=== PATIENT | male | born 1980 | race Hispanic/Latino ===

== ENCOUNTER 2017-11-02 01:36 | Emergency (ER) | payer SELFPAY ==
[2017-11-02 01:47] VITALS: BP 141/88; PULSE 100; RESP 17; TEMP 98.9; O2SAT 99
--- NOTE | 2017-11-02 04:13 | ED PDOC ---
HPI: Psych/Substance Abuse Time Seen by Provider: 11/02/17 01:46 Chief Complaint (Nursing): Alcohol Ingestion Chief Complaint (Provider): Alcohol Abuse History Per: Patient History/Exam Limitations: no limitations Onset/Duration Of Symptoms: Hrs (prior to arrival) Modifying Factor(s): Alcohol Additional Complaint(s): Samuel Hein is a 37 year old male with a no past medical history was brought to the [facility] by EMS for alcohol intoxication, onset prior to arrival. Patient states that he doesnt know why he is here but was encouraged by local police. He admits to having a few drinks with dinner but claims he is well. Patient refuses to be evaluated and denies trauma, injury, headaches, chest pain , and shortness of breath, bowel pain, homicidal or suicidal ideation. He offers no other medical complaints at this time. PMD: non-[facility] provider Past Medical History Reviewed: Historical Data, Nursing Documentation, Vital Signs Vital Signs: Last Vital Signs Temp 98.9 F 11/02/17 01:45 Pulse 100 H 11/02/17 01:45 Resp 17 11/02/17 01:45 BP 141/88 11/02/17 01:45 Pulse Ox 99 11/02/17 01:45 - Medical History PMH: No Chronic Diseases - Surgical History Surgical History: No Surg Hx - Family History Family History: States: Unknown Family Hx - Social History Alcohol: Other (had a few drinks with dinner) - Allergies Allergies/Adverse Reactions: Allergies Allergy/AdvReac Type Severity Reaction Status Date / Time No Known Allergies Allergy Verified 11/02/17 01:47 Review of Systems ROS Statement: Except As Marked, All Systems Reviewed And Found Negative Cardiovascular: Negative for: Chest Pain Respiratory: Negative for: Shortness of Breath Neurological: Negative for: Headache, Other (trauma, injury, loss of consciousness) Psych: Negative for: Suicidal ideation, Other (homicidal ideation) Physical Exam - Reviewed Nursing Documentation Reviewed: Yes Vital Signs Reviewed: Yes - Physical Exam Comments: Physical Exam not completed as patient refused to be examined. Patient has no visible signs of injury, speaking in full sentences, no tremors. Ambulating with a normal gait. - ECG O2 Sat by Pulse Oximetry: 99 (RA) Pulse Ox Interpretation: Normal Medical Decision Making Medical Decision Making: Patient continued to refuse vitals and physical exam. He made multiple phone calls to friends and family to come pick him up. Patient has a steady gait and no slurred speech upon observation. He states he has no complaints and feels well, requesting to go home. Patient is stable and ready for discharge. Scribe Attestation: Documented by Yi Waldrop, acting as a scribe for Monique Krishnamurthy PA-C. Provider Scribe Attestation: All medical record entries made by the Scribe were at my direction and personally dictated by me. I have reviewed the chart and agree that the record accurately reflects my personal performance of the history, physical exam, medical decision making, and the department course for this patient. I have also personally directed, reviewed, and agree with the discharge instructions and disposition. Disposition - Clinical Impression Clinical Impression: Alcohol abuse - Patient ED Disposition Is Patient to be Admitted: No - Disposition Referrals: Alcoholics Anonymous [Outside] Disposition: Routine/Home Disposition Time: 03:00 Condition: STABLE Instructions: Alcohol Abuse and Alcoholism (DC) Forms: [employer] (Yi) - PA / ENGINE INSTALLER / Resident Statement / has reviewed & agrees with the documentation as recorded.
== END 2017-11-02 03:12 | disposition home or self-care (01) ==
LOC: H.ER 01:36
DX: F10.10 Alcohol abuse, uncomplicated (principal)